=== PATIENT | male | born 1985 | race American Indian/Alaskan Native ===

== ENCOUNTER 2019-08-09 12:55 | Emergency (ER) | payer MEDICAID ==
--- NOTE | 2019-08-09 13:29 | Event Note ---
ED Screening Note Date of service: 08/09/19 Time: 13:26 ED Screening Note: This is a 34 y.o. M. that presents to the ER with infected wound to right buttock for 4-5 months. Patient states his personal long term brought him here instead of [place] where his PCP is. Patient reports pressure ulcer is painful and worse than 2-3 months ago. Current cigarette and marijuana smoker. This initial assessment/diagnostic orders/clinical plan/treatment(s) is/are subject to change based on patients health status, clinical progression and re- assessment by fellow clinical providers in the ED. Further treatment and workup at subsequent clinical providers discretion. Patient/guardian urged not to elope from the ED as their condition may be serious if not clinically assessed and managed. Initial orders include:
[2019-08-09] MEDS ORDERED: SODIUM CHLORIDE 0.9% 1000 ML IV SOLN IV ONE (16:00)
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
[2019-08-09 16:28] LABS: Basophils # (Auto) 0.1 K/mm3 (0.0-0.1); Eosinophils # (Auto) 0.5 K/mm3 (0.0-0.4); Eosinophils % (Auto) 7.9 % (0.0-4.3); Hemoglobin 12.9 gm/dl (11.8-15.2); Lymphocytes # (Auto) 2.6 K/mm3 (1.2-5.4); Lymphocytes % (Auto) 41.5 % (13.4-35.0); Mean Corpuscular HGB Conc 32 % (32-34); Mean Corpuscular Volume 79 fl (84-94); Monocytes # (Auto) 0.4 K/mm3 (0.0-0.8); Monocytes % (Auto) 6.4 % (0.0-7.3); Platelet Count 226 K/mm3 (140-440); Red Blood Count 5.05 M/mm3 (3.65-5.03); Red Cell Distribution Width 17.5 % (13.2-15.2)
--- NOTE | 2019-08-09 16:41 | XRay Report ---
CHEST 1 VIEW INDICATION: FEVER. COMPARISON: 05/17/2019 FINDINGS: Support devices: None. Heart: Within normal limits. Lungs/Pleura: No acute air space or interstitial disease. Additional findings: A small amount of metallic density projects over the right lung base and a poste rior thoracolumbar construct is intact on this single frontal image. IMPRESSION: 1. No acute findings. Signer Name: Cody Everett MD Signed: 08/09/2019 4:36 PM Workstation Name: [id number]
[2019-08-09 16:44] LABS: Alanine Aminotransferase 14 units/L (7-56); Albumin 3.5 g/dL (3.9-5); BUN/Creatinine Ratio 13; Blood Urea Nitrogen 9 mg/dL (9-20); Calcium 9.3 mg/dL (8.4-10.2); Hemolysis Index 5
[2019-08-09 17:31] LABS: Bilirubin,Urine NEG (Negative); Blood,Urine NEG (Negative); Color,Urine Yellow (Yellow); Mucus,Urine FEW /HPF; Protein,Urine <15 mg/dL mg/dL (Negative); WBC,Urine < 1.0 /HPF (0.0-6.0)
[2019-08-09] MEDS ORDERED: HYDROcodone/ACETAMINOPHEN 10-325MG TAB PO ONE (17:37)
[2019-08-09] MEDS ORDERED: HYDROmorphone 1 MG/1 ML INJ ONE (22:21)
[2019-08-10] MEDS ORDERED: HYDROmorphone 2 MG/1 ML INJ IV ONE (01:33)
[2019-08-10 01:36] VITALS: BP 122/59
== END 2019-08-10 11:00 | disposition home or self-care (01) ==
LOC: ED 12:55 → 3A 21:08 → UNDOADMIN 21:08 → 3A 22:14
DX: S31.000A Unspecified open wound of lower back and pelvis without penetration into retroperitoneum, initial encounter (principal); F17.200 Nicotine dependence, unspecified, uncomplicated; F12.10 Cannabis abuse, uncomplicated; Z21 Asymptomatic human immunodeficiency virus [HIV] infection status; Z79.899 Other long term (current) drug therapy; X58.XXXA Exposure to other specified factors, initial encounter; Y93.89 Activity, other specified; Y92.89 Other specified places as the place of occurrence of the external cause; Y99.8 Other external cause status
CPT/HCPCS: 36415; 71045; 80053; 81001; 82140; 82550; 85025; 87040; 87076; 87086; 87116; 87186; 93005; 93010; 96365; 96375; 99284; J0690; J1170; J7030; 96374; G0378